=== PATIENT | female | born 1965 | race African-American/Black ===

== ENCOUNTER 2016-12-12 07:30 | Inpatient (IN) | payer BC ==
[~2016-12-12] VITALS: Ht 170.2 cm; Wt 86.2 kg
[2016-12-26] MEDS ORDERED: CEFAZOLIN SOD 1 GM/ ISO 50 ML PREMIX IV ONE (07:00)
[2016-12-26] MEDS ORDERED: LR 1,000 ML IV SCH (08:19)
[2016-12-26] MEDS ORDERED: HYDROmorphone 2 MG/ML VIAL IVP PRN ×2 (08:30)
[2016-12-26] MEDS ORDERED: ONDANSETRON HCL 4 MG/2 ML VIAL IVP PRN ×2 (08:30→10:00)
[2016-12-26] MEDS ORDERED: KETOROLAC TROMETHAMINE 30 MG VIAL IVP PRN (08:30)
[2016-12-26] MEDS ORDERED: HYDROmorphone 1 MG INJ. 1 MG/ML AMPUL IVP PRN (08:30)
[2016-12-26] MEDS ORDERED: MEPERIDINE HCL/PF 25 MG/ML DISP.SYRIN IVP PRN ×2 (08:30)
[2016-12-26] MEDS ORDERED: IBUPROFEN 800 MG TABLET PO PRN (10:00)
[2016-12-26] MEDS ORDERED: HYDROmorphone 1 MG INJ. 1 MG/ML AMPUL ONE (10:57)
[2016-12-26] MEDS ORDERED: ONDANSETRON HCL 4 MG/2 ML VIAL ONE ×2 (10:59→12:00)
[2016-12-26] MEDS ORDERED: ROCURONIUM BROMIDE 10 MG/ML (ZEMURON) ONE (12:00)
[2016-12-26] MEDS ORDERED: MIDAZOLAM HCL 5 MG/5 ML VIAL ONE (12:00)
[2016-12-26] MEDS ORDERED: fentaNYL CITRATE 250 MCG/5 ML AMP ONE (12:00)
[2016-12-26] MEDS ORDERED: NS IRRIG SOLN 1000 ML IR ONE (12:00)
[2016-12-26] MEDS ORDERED: KETOROLAC TROMETHAMINE 30 MG VIAL ONE (12:00)
[2016-12-26] MEDS ORDERED: SEVOFLURANE 15 MIN GAS INH ONE (12:00)
[2016-12-26] MEDS ORDERED: LR 1,000 ML IV.SOLN IV ONE (12:00)
[2016-12-26] MEDS ORDERED: PROPOFOL 200MG/ 20ML VIAL (DIPRIVAN) IV ONE (12:00)
[2016-12-26 12:02] VITALS: BP_SYST 144
[2016-12-26] MEDS: LR 1,000 ML IV SCH ×2 (12:29→19:38)
[2016-12-26] MEDS: SIMETHICONE 80 MG TAB.CHEW PO PRN ×2 (12:34→17:16)
[2016-12-26] MEDS: OXYCODONE/ACETAMINOPHEN 5-325 TABLET PO PRN ×3 (12:34→20:14)
[2016-12-26] MEDS ORDERED: PROMETHAZINE HCL 25 MG/ML AMP IM PRN (13:30)
[2016-12-26] MEDS ORDERED: MEPERIDINE HCL/PF 50 MG/ML AMP IM PRN (13:30)
[2016-12-26 16:26] VITALS: BP_SYST 144
[2016-12-26 17:00] VITALS: BP_SYST 126
[2016-12-26 20:00] VITALS: BP_SYST 132
[2016-12-26] MEDS ORDERED: TEMAZEPAM 15 MG CAPSULE PO PRN (21:00)
[2016-12-26] MEDS ORDERED: SENNOSIDES/DOCUSATE SODIUM 1 TAB TABLET(SENOKOT-S) PO PRN ×2 (21:00)
[2016-12-27 00:50] VITALS: BP_SYST 110
[2016-12-27] MEDS: LR 1,000 ML IV SCH (01:51)
[2016-12-27 03:51] VITALS: BP_SYST 118
[2016-12-27 06:54] LABS: HEMATOCRIT 34.2 % (36-48); HEMOGLOBIN 11.4 g/dL (12.0-16.0)
[2016-12-27 08:00] VITALS: BP_SYST 107
[2016-12-27] MEDS: OXYCODONE/ACETAMINOPHEN 5-325 TABLET PO PRN ×3 (09:09→19:56)
[2016-12-27 12:30] VITALS: BP_SYST 123
[2016-12-27] MEDS: SIMETHICONE 80 MG TAB.CHEW PO PRN ×2 (15:14→19:57)
[2016-12-27 16:05] VITALS: BP_SYST 127
[2016-12-27 20:00] VITALS: BP_SYST 112
[2016-12-28 00:28] VITALS: BP_SYST 112
[2016-12-28] MEDS: OXYCODONE/ACETAMINOPHEN 5-325 TABLET PO PRN (03:12)
[2016-12-28] MEDS: SIMETHICONE 80 MG TAB.CHEW PO PRN (03:18)
[2016-12-28 04:09] VITALS: BP_SYST 109
[2016-12-28 07:52] VITALS: BP_SYST 116
[2016-12-28 08:00] VITALS: BP_SYST 116
[2016-12-28 12:00] VITALS: BP_SYST 112
== END 2016-12-28 11:40 | disposition home or self-care (01) | DRG 743 ==
LOC: SMU 12-26 05:35
PROVIDERS: ADMIT Obstetrics & Gynecology; ATTEND Obstetrics & Gynecology
PROC: 0UTC0ZZ Resection of Cervix, Open Approach (ICD-10-PCS; 2016-12-26)
PROC: 0UT70ZZ Resection of Bilateral Fallopian Tubes, Open Approach (ICD-10-PCS; 2016-12-26)
PROC: 3E0T3CZ (ICD-10-PCS; 2016-12-26)
PROC: 0UT90ZZ Resection of Uterus, Open Approach (ICD-10-PCS; principal; 2016-12-26 07:30)
DX: D25.9 Leiomyoma of uterus, unspecified (principal); J45.909 Unspecified asthma, uncomplicated; Z87.440 Personal history of urinary (tract) infections; Z98.51 Tubal ligation status; Z80.0 Family history of malignant neoplasm of digestive organs
CPT/HCPCS: 36415; 85018-TC; 86886; 86900; 86901; 87081; 88307; 94010; J0690; J1170; J1885; J2175; J2250; J2405; J2550; J2704; J3010; J7120